=== PATIENT | male | born 1990 | race Caucasian/White ===

== ENCOUNTER 2021-02-08 00:52 | Emergency (ER) | payer OTHER ==
[~2021-02-08] VITALS: Ht 165.1 cm; Wt 99.8 kg
[2021-02-08 00:59] VITALS: BP 144/82
[2021-02-08] MEDS ORDERED: TOPROL XL100 MG PO (01:02)
[2021-02-08] MEDS ORDERED: TRAMADOL 50 MG50 MG PO (01:17)
--- NOTE | 2021-02-08 11:21 | EKG ---
[place] [address] ELECTROCARDIOGRAM REPORT Name: RENETTA ESPINOZA Room: [facility]#: [id number] Admission: 02/08/21 Attend Phys: Discharge: 02/08/21 Date of : 89 Date of Service: 02/08/21 0052 Report #: [id number] THIS REPORT FOR: //name// 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: [facility] : 1990 Requested By: Ann Chaney Order Number: [id number] MD: Fortunato Goodwin Measurements Intervals [place] Rate: 56 P: 34 AR: 153 QRS: 9 QRSD: 102 T: 16 QT: 376 QTc: 363 Interpretive Statements Sinus rhythm RSR' in V1 or V2, probably normal variant ST elev, probable normal early repol pattern No previous ECG available for comparison Electronically Signed On 02-08-2021 11:21:31 CDT by Fortunato Goodwin [email or web address] <ELECTRONICALLY SIGNED> By: Fortunato Goodwin MD, [facility] 02/08/21 1121 005 Fortunato Goodwin MD, [facility] /EPI
== END 2021-02-08 01:20 | disposition home or self-care (01) ==
LOC: M.ERS 00:52
DX: M25.512 Pain in left shoulder (principal); I10 Essential (primary) hypertension

== ENCOUNTER 2021-06-21 16:34 | Emergency (ER) | payer OTHER ==
[~2021-06-21] VITALS: Ht 167.6 cm; Wt 95.3 kg
[~2021-06-21 16:34] MED LIST: TOPROL XL100 MG PO; TRAMADOL 50 MG50 MG PO
[2021-06-21 17:52] LABS: ABSOLUTE EOSINOPHILS 0.1 thou/uL (0.0-0.7); ABSOLUTE LYMPHOCYTES 0.6 thou/uL (0.8-5.3); ABSOLUTE MONOCYTES 0.9 thou/uL (0.0-1.2); ABSOLUTE NEUTROPHILS 8.8 thou/uL (1.6-8.1); BASOPHILS 0.3 %; EOSINOPHILS 1.3 %; HEMOGLOBIN 17.8 gm/dL (14.0-18.0); MCHC 34.2 g/dL (28.0-37.0); MCV 90.8 fL (80.0-100.0); MONOCYTES 8.4 %; MPV 6.6 fl. (7.2-11.1); NUCLEATED RBCS 0 /100WBC; PLATELET COUNT* 227 thou/uL (150-400); RBC 5.73 mil/uL (4.50-6.00); RDW-CV 13.4 % (10.5-14.5); WBC 10.4 thou/uL (4.0-11.0)
[2021-06-21 18:02] LABS: CALCIUM 8.5 mg/dL (8.5-10.1); CREATININE 0.9 mg/dL (0.6-1.3); POTASSIUM 4.4 mmol/L (3.5-5.1)
[2021-06-21 18:06] LABS: ALBUMIN 4.2 g/dL (3.4-5.0); TOTAL BILIRUBIN 0.7 mg/dL (<0.1-1.0); TOTAL PROTEIN 8.1 g/dL (6.4-8.2)
[2021-06-21 18:41] LABS: URINE BILIRUBIN NEGATIVE (Negative); URINE BLOOD NEGATIVE (Negative); URINE CLARITY CLEAR; URINE COLOR YELLOW; URINE GLUCOSE-RANDOM NEGATIVE (Negative); URINE KETONES NEGATIVE (Negative); URINE LEUKOCYTES-REFLEX NEGATIVE (Negative); URINE NITRITE-REFLEX NEGATIVE (Negative); URINE PROTEIN NEGATIVE (Negative); URINE SPECIFIC GRAVITY <= 1.005 (1.005-1.030); URINE UROBILINOGEN 0.2 E.U./dl (0.2-1.0)
[2021-06-21] MEDS ORDERED: APAP W/CODEINE1 TA2 PO (19:21)
[2021-06-21] MEDS ORDERED: ONDANSETRON ODT4 MG PO (19:23)
[2021-06-21 19:40] VITALS: BP 128/91
== END 2021-06-21 19:40 | disposition home or self-care (01) ==
LOC: M.ERS 16:34
PROVIDERS: Physician Assistant
DX: R10.32 Left lower quadrant pain (principal); I10 Essential (primary) hypertension; Z79.899 Other long term (current) drug therapy